=== PATIENT | female | born 1955 ===

== ENCOUNTER 2019-06-03 11:17 | Emergency (ER) | payer OTHER ==
[~2019-06-03] VITALS: Ht 165.1 cm; Wt 63.5 kg
[2019-06-03] MEDS ORDERED: ZANTAC25 MG/1 ML (11:39)
== END 2019-06-03 19:03 | disposition home or self-care (01) ==
LOC: ER 11:17
DX: K57.92 Diverticulitis of intestine, part unspecified, without perforation or abscess without bleeding (principal)